=== PATIENT | female | born 1985 | race Two or more races ===

== ENCOUNTER 2024-01-10 17:36 | Emergency (ER) | payer MEDICAID, OTHER ==
[~2024-01-10] VITALS: Ht 152.4 cm; Wt 70.3 kg
--- NOTE | 2024-01-10 18:49 | ED.PDOC ---
HPI (NEURO) HPI Comments 38 y.o female presents to the ED for a chief complaint of dizziness that started today while at work. Patient reports she took a break, developed a generalized headache, nausea, vomiting, and plugged bilateral ears. Patient took a Tylenol which relieved her headache but is still dizzy with nausea and describes generalized body weakness. Patient denies any chest pain, SOB, fever, chills, abdominal pain, ear pain, sore throat or congestion. Vital signs were stable at arrival. Chief Complaint: Dizziness Time Seen by MD: 18:42 Reviewed Notes: Nurses Notes, Medications, Allergies Information Source: Patient Mode of Arrival: Ambulatory Severity: Moderate Dizziness/Weakness Severity: Unable to do activities Headache Severity: Moderate Timing: Hours Duration: Since onset Headache Quality: Aching Headache Location: Generalized Weakness Location: Generalized Onset: At rest Circumstances: Spontaneous Symptoms: None History of: None Modifying factors: Nothing Associated Signs and Symptoms: Headache, Nausea, Vomiting Past Medical History PAST MEDICAL HISTORY: Denies Surgical History: Denies all surgeries BIOASSAYIST History: No Pertinent BIOASSAYIST History Family History Family History: Reviewed,noncontributory to illness Social History Smoker: Non-Smoker Alcohol: Denies ETOH Use Drugs: Denies Drug Use Lives In: Home Constitutional: reports: malaise, weakness; denies: chills, diaphoresis, fatigue, fever, sweats, others EENTM: denies: blurred vision, double vision, ear bleeding, ear discharge, ear drainage, ear pain, ear ringing, eye pain, eye redness, hearing loss, mouth pain, mouth swelling, nasal discharge, nose bleeding, nose congestion, nose pain, photophobia, tearing, throat pain, throat swelling, voice changes, others Respiratory: denies: cough, hemoptysis, orthopnea, SOB at rest, shortness of breath, SOB with excertion, stridor, wheezing, others Cardiovascular: denies: chest pain, dizzy spells, diaphoresis, Dyspnea on exertion, edema, irregular heart beat, left arm pain, lightheadedness, palpitations, PND, syncope, others Gastrointestinal: reports: nausea, vomiting; denies: abdomen distended, abdominal pain, blood streaked bowels, constipated, diarrhea, dysphagia, difficulty swallowing, hematemesis, melena, poor appetite, poor fluid intake, rectal bleeding, rectal pain, others Genitourinary: denies: abnormal vagina bleeding, burning, dyspareunia, dysuria, flank pain, frequency, hematuria, incontinence, pain, , vagina discharge, urgency, others Neurological: reports: dizziness, headache; denies: fainting, left sided numbness, left sided weakness, numbness, paresthesia, pre-existing deficit, right sided numbness, right sided weakness, seizure, speech problems, tingling, tremors, weakness, others Musculoskeletal: denies: back pain, gout, joint pain, joint swelling, muscle pain, muscle stiffness, neck pain, others Integumetry: denies: bruises, change in color, change in hair/nails, dryness, laceration, lesions, lumps, rash, wounds, others Allergic/Immunocompromised: denies: Difficulty Healing, Frequent Infections, Hives, Itching, others Hematologic/Lymphatic: denies: anemia, blood clots, easy bleeding, easy bruising, swollen glands, others Endocrine: denies: excessive hunger, excessive sweating, excessive thirst, excessive urination, flushing, intolerance to cold, intolerance to heat, unexplained weight gain, unexplained weight loss, others Psychiatric: denies: anxiety, bipolar disorder, depression, hopeless, panic disorder, schizophrenia, sleepless, suicidal, others All Other Systems: Reviewed and Negative Physical Exam General Appearance: Moderate Distress (Patient presents as a moderately ill 38-year-old female.), Normal HEENT: Normal ENT Inspection, Pharynx Normal, TMs Normal Neck: Full Range of Motion, Non-Tender, Normal, Normal Inspection Respiratory: Chest Non-Tender, Lungs Clear, No Accessory Muscle Use, No Respiratory Distress, Normal Breath Sounds Cardiovascular: No Edema, No JVD, No Murmur, No Gallop, Normal Peripheral Pulses, Regular Rate/Rhythm Breast Exam: Deferred Gastrointestinal: No Organomegaly, Non Tender, No Pulsatile Mass, Normal Bowel Sounds, Soft Genitalia: Deferred Pelvic: Deferred Rectal: Deferred Extremities: No calf tenderness, Normal capillary refill, Normal inspection, Normal range of motion, Non-tender, No pedal edema 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 Was a procedure done?: No Differential Diagnosis (SZ) General Weakness: Electrolyte imbalance, Vertigo: central, Vertigo: peripheral, Other (UTI, viral illness) Headache: Migraine X-Ray, Labs, Meds, VS Vital Signs Date Time Temp Pulse Resp B/P (MAP) Pulse Ox O2 Delivery O2 Flow Rate FiO2 01/10/24 21:30 99 18 96 Room Air* 0 21 01/10/24 21:14 98.3 101 17 108/65 (79) 98 98.3 01/10/24 18:32 97.8 101 16 101/68 (79) 98 01/10/24 18:27 99 Lab Test 01/10/24 18:44 01/10/24 18:19 Range/Units Urine Color Light-yellow Yellow Urine Clarity Turbid H Clear Urine pH 6.5 5.0-9.0 Urine Specific [place] 1.014 1.001-1.035 Urine Protein Negative Negative Urine Ketones Negative Negative Urine Blood 1+ H Negative /uL Urine Nitrite Negative Negative Urine Bilirubin Negative Negative Urine Urobilinogen Normal Negative mg/dL Urine Leukocyte Esterase 1+ Negative /uL Urine RBC 3 0 - 4 /hpf Urine WBC 4 0 - 5 /hpf Urine Squamous Epithelial Cells Mod <5 /hpf Urine Bacteria Few H None Seen /hpf Urine Mucus Few None Seen Urine Glucose Normal Normal mg/dL Urine Test Negative Negative POC Glucose 130 H 70-106 mg/dl Current Medications Medications (Trade) Dose Ordered Sig/Hyun Route Start Time Stop Time Status Last Admin Ondansetron HCl (Zofran Po) 4 mg ONCE ONCE PO 01/10/24 18:45 01/10/24 18:46 DC 01/10/24 21:43 Ketorolac Tromethamine (Toradol Injection) 30 mg ONCE ONCE IM 01/10/24 18:45 01/10/24 18:46 DC 01/10/24 21:43 X-Ray, Labs, Meds, VS Comment All studies performed the ED today were evaluated by me personally. Chest x-ray was unremarkable for any acute process. No consolidation or signs of pulmonary disease. Urinalysis revealed a small urinary tract infection. I think the patient is suffering from a viral illness the urinary tract infection with secondary. Advised patient utilize antibiotics as directed as well as additional medication as needed. Time of 1ST Reevaluation: 22:12 Reevaluation 1ST: Improved Consultation: PCP Patient Education/Counseling: Diagnosis, Treatment, Prognosis Family Education/Counseling: Diagnosis, Treatment, No Family Present Departure 1 Departure Time of Disposition: 22:12 Impression: Primary Impression: Viral gastroenteritis Additional Impression: UTI (urinary tract infection) Disposition: HOME / SELF CARE / HOMELESS Condition: Stable Additional Instructions: Advised patient utilize antibiotics as directed until completion as well as additional medication as needed for symptomatic relief. Patient should practice good hydration and healthy nutrition throughout illness event. e-Prescriptions Dicyclomine Hcl (BENTYL CAPSULE) 10 Mg Cp 1 CAP PO Q6HPRN, #20 CAP 0 Refills Prov: JOCE HUTTON PAC 01/10/24 Ondansetron Odt 4MG Tab (ZOFRAN PO) 4 Mg Tb 4 MG PO Q6HP PRN, #20 TAB ODT TAB-DISSOLVE IN MOUTH, THEN SWALLOW Prov: JOCE HUTTON PAC 01/10/24 Acetaminophen (Acetaminophen) 500 Mg Tab 500 MG PO Q4HP PRN, #30 TAB Prov: JOCE HUTTON PAC 01/10/24 Nitrofurantoin Monohydrate Mac (Macrobid) 100 Mg Cap 100 MG PO BID for 3 Days, #6 CAP Prov: JOCE HUTTON PAC 01/10/24 Discharged With: Self, Friend Critical Care Note Critical Care Time?: No Stability Stability form required: No I personally scribed for JOCE HUTTON PAC ([email or web address]) on 01/10/24 at 18:49. Electronically submitted by Omaira Castro ([facility]). I personally scribed for JOCE HUTTON PAC ([email or web address]) on 01/10/24 at 18:50. Electronically submitted by Omaira Castro ([facility]). JOCE HUTTON PAC Jan 10, 2024 18:49
[2024-01-10 19:17] LABS: Urine Bacteria FEW /hpf (None Seen); Urine Blood 1+ /uL (Negative); Urine Clarity Turbid (Clear); Urine Color Light-Yellow (Yellow); Urine Mucus FEW (None Seen); Urine Protein, UAD Negative (Negative); Urine Specific Gravity 1.014 (1.001-1.035); Urine Urobilinogen Normal (Negative); Urine WBC 4 /hpf (0 - 5); Urine pH 6.5 (5.0-9.0)
--- NOTE | 2024-01-10 20:29 | DVH ---
CHEST RADIOGRAPH Indication: Chest pain Technique: Single frontal view of the chest was obtained COMPARISON: None FINDINGS: Lines and Tubes: None Lungs: Clear Pleura: No effusion. No pneumothorax. Cardiomediastinal contours: Unremarkable Bones: Unremarkable IMPRESSION: 1. No acute disease.
[2024-01-10 21:30] VITALS: PULSE 99; RESP 18; O2SAT 96
[2024-01-10] MEDS: KETOROLAC TROMETH 60MG/2ML VIAL IM ONE (21:43)
[2024-01-10] MEDS: ONDANSETRON ODT 4 MG TAB PO ONE (21:43)
[2024-01-10] MEDS ORDERED: ZOFR4T PO (22:14)
[2024-01-10] MEDS ORDERED: NITR-87 PO (22:14)
[2024-01-10] MEDS ORDERED: ACET500T58 PO (22:14)
[2024-01-10] MEDS ORDERED: DICY10CA PO (22:14)
[2024-01-10 22:52] LABS: Rapid Influenza A Negative (Negative); Rapid Influenza B Negative (Negative)
[2024-01-10 22:53] LABS: COVID19 ANTIGEN SOFIA FIA NEGATIVE (NEGATIVE)
[2024-01-11] MEDS: NITROFURANTOIN 100 mg CAP PO ONE ×2 (00:13→00:22)
[2024-01-11 00:23] VITALS: BP 106/71; PULSE 95; RESP 18; TEMP 98; O2SAT 97
--- NOTE | 2024-01-11 07:05 | ECG ---
[facility] Test Date: 2024-01-10 Test Time: 18:27:11 Pat Name: JOSE ANTONIO MARRERO Department: ER Room: Gender: F [employer]: [employer] : 1985 Requested By: JOCE HUTTON Order Number: [id number] Reading MD: Wili Vasquez Measurements Intervals Moore Rate: 99 P: 71 PA: 142 QRS: 101 QRSD: 104 T: -42 QT: 343 QTc: 441 Interpretive Statements Sinus rhythm S1,S2,S3 pattern Consider right ventricular hypertrophy Nonspecific T abnormalities, diffuse leads Electronically Signed On 01-17-2024 14:47:07 PST by Wili Vasquez Please click the below link to view image of tracing.
== END 2024-01-11 00:29 | disposition home or self-care (01) ==
LOC: ER 17:36
DX: A08.4 Viral intestinal infection, unspecified (principal); N39.0 Urinary tract infection, site not specified; Z20.822 Contact with and (suspected) exposure to COVID-19
CPT/HCPCS: 36415; 71045; 81001; 81025; 82962; 87426; 87804; 93005; 96372; 99285; J1885; Q0162